=== PATIENT | male | born 1975 | race Caucasian/White ===

== ENCOUNTER → 2018-01-24 | Day surgery (SDC) | payer BC ==
[2018-01-23 09:35] VITALS: BMI 34.3
[~2018-01-24] MED LIST: BUPIVACAINE (PF) 0.5% 30 ML VIAL SQ ONE; DEXAMETHASONE SOD PHOSPHATE 10 MG/ML 1 ML VIAL IV ONE; GELATIN SPONGE,ABSORB (LARGE) 1 EACH SPONGE TOPICAL ONE; HEPARIN SODIUM,PORCINE 5,000 UNIT/ML 1 ML VIAL SQ ONE; HYDROmorphone 0.5 MG/0.5 ML SYRINGE IVP PRN; LACTATED RINGERS 1,000 ML IV SCH; LIDOCAINE 1% 20 ML VIAL (10MG/ML) FOR IV START INTRADERMA PRN; LIDOCAINE 1%-EPI 1:100,000 30 ML VIAL SQ ONE; MIDAZOLAM 2 MG/2 ML VIAL IV PRN; MIDAZOLAM 2 MG/2 ML VIAL ONE; MORPHINE SULFATE 4 MG/ML SYRINGE IV PRN; NA PHOS,M-B/NA PHOS,DI-BA 133 ML ENEMA RECTAL ONE; ONDANSETRON 4 MG/2 ML VIAL IVP ONE; PROPOFOL 10 MG/ML 20 ML VIAL IV ONE; Pre Op ABX Message 1 EACH MISC MISCELLANE ONE; SCOPOLAMINE 1.5MG/72HR PATCH TRANSDERM ONE; SODIUM CHLORIDE 0.9% 50 ML with ceFAZolin 2,000 MG IV ONE; fentaNYL (PF) 50 MCG/ML 2 ML AMP ONE
[2018-01-24 07:05] VITALS: RESP 16; TEMP 97.4
--- NOTE | 2018-01-24 07:55 | P.GSHP ---
History of Present Illness H&P Date: 01/24/18 Chief Complaint: Internal and external hemorrhoids 's is a 42-year-old male who presents today for hemorrhoidectomy. Patient's had troubles with bleeding and itching from internal and external hemorrhoids. Past Medical History Past Medical History: No Reported History History of Any Multi-Drug Resistant Organisms: None Reported Past Surgical History: No Surgical Hx Reported Past Anesthesia/Blood Transfusion Reactions: No Reported Reaction Additional Past Anesthesia/Blood Transfusion Reaction / Comment(s): FIRST ANESTHETIC Smoking Status: Never smoker - Past Family History Mother Family Medical History: No Reported History Medications and Allergies Home Medications Medication Instructions Recorded Confirmed Type No Known Home Medications [No 01/23/18 01/24/18 History Known Home Medications] Allergies Allergy/AdvReac Type Severity Reaction Status Date / Time No Known Allergies Allergy Verified 01/24/18 07:29 Surgical - Exam Vital Signs Temp Pulse Resp BP Pulse Ox 97.4 F L 61 16 164/89 98 01/24/18 07:04 01/24/18 07:04 01/24/18 07:04 01/24/18 07:04 01/24/18 07:04 - General well developed, no distress - Eyes PERRL - ENT normal pinna - Neck no masses - Respiratory normal expansion - Cardiovascular Rhythm: regular - Abdomen Abdomen: soft, non tender - Rectum Internal and external hemorrhoids Assessment and Plan Assessment: Internal and external hemorrhoids. We'll perform hemorrhoidectomy..
--- NOTE | 2018-01-24 08:41 | P.OP ---
Date of Procedure: 01/24/18 Preoperative Diagnosis: Internal and external hemorrhoids Postoperative Diagnosis: Internal and external hemorrhoids Procedure(s) Performed: Internal and Hemorrhoidectomy Anesthesia: MAC, local Surgeon: Piter Guerra Estimated Blood Loss (ml): 5 Pathology: other Condition: stable Disposition: PACU Description of Procedure: The patient was placed on the operative table in the prone jackknife position. He received IV sedation. His perianal area was prepped and draped usual sterile fashion. The hemorrhoid area was excised 1% local Xylocaine. Then using a Harmonic scissors the hemorrhoid was performed at the 12 o'clock position. There is another large hemorrhoid column at the 7 o'clock position and this was excised using Harmonic scissors. Large cautery used for hemostasis. The wound was packed with Gelfoam. Patient was sent to recovery in stable condition.
[2018-01-24 09:14] VITALS: BP 158/96; PULSE 91
== END ==
LOC: OR 06:47
PROVIDERS: ATTEND Surgery
DX: K64.4 Residual hemorrhoidal skin tags (principal); K64.8 Other hemorrhoids
CPT/HCPCS: 88304; 46260; J2250; J1644; J1100; J2405; J3010; J0690; J2704

== ENCOUNTER → 2021-09-15 | Outpatient (CLI) | payer BC ==
--- NOTE | 2021-09-15 11:39 | XR ---
Left ankle and left foot HISTORY: Pain, swelling 3 views of the left ankle, 3 views of the left foot There is soft tissue swelling especially over the lateral malleolus. Joint spaces, alignment, bone mi neralization are maintained. There is a plantar calcaneal spur present. No evident fracture or disloc ation. Mild spurring at the tarsometatarsal joint of the first digit, metatarsophalangeal joint of th e first digit with associated joint space loss. IMPRESSION: Plantar calcaneal spur. Osteoarthritic changes as described. Soft tissue swelling.
== END | disposition home or self-care (01) ==
LOC: RADXRMAIN 10:44
PROVIDERS: ATTEND Nurse Practitioner
DX: M19.072 Primary osteoarthritis, left ankle and foot (principal); M77.32 Calcaneal spur, left foot